=== PATIENT | male | born 1965 | race Caucasian/White ===

== ENCOUNTER → 2023-03-12 | Emergency (ER) | payer BC ==
[~2023-03-12] MED LIST: DIPHENHYDRAMINE 25 MG TAB/CAP ONE
--- NOTE | 2023-03-12 18:56 | ER ---
Nurse's Notes [facility] Name: King Simmons Age: 57 yrs Sex: Male : 1965 Arrival Date: 03/12/2023 Time: 16:49 Bed IW1 Private MD: Diagnosis: Acute pharyngitis, unspecified;Rash and other nonspecific skin eruption Presentation: 03/12 17:03 Chief complaint: Had the flu 10 days ago, was starting to feel better then woke with hb severe sore throat 2 days ago, rash on trunk today. Coronavirus screen: Client presents with at least one sign or symptom that may indicate coronavirus-19. Provider contacted for isolation considerations. Ebola Screen: No symptoms or risks identified at this time. Initial Sepsis Screen: Does the patient meet any 2 criteria? No. Patient's initial sepsis screen is negative. Does the patient have a suspected source of infection? No. Patient's initial sepsis screen is negative. Risk Assessment: Do you want to hurt yourself or someone else? Patient reports no desire to harm self or others. Onset of symptoms was March 02, 2023. 17:03 Method Of Arrival: Ambulatory 17:03 Acuity: WAYNE 4 hb Triage Assessment: 19:11 General: Appears in no apparent distress. comfortable, Behavior is calm, cooperative. cm10 Pain: Denies pain. EENT: No deficits noted. Reports pain in Throat. Neuro: No deficits noted. Level of Consciousness is awake, alert, obeys commands, Oriented to person, place, time, situation. Respiratory: No deficits noted. Airway is patent Respiratory effort is even, unlabored, Respiratory pattern is regular, symmetrical. Historical: - Allergies: 17:05 No Known Allergies; hb - Home Meds: 17:07 lisinopril Oral [Active]; amlodipine oral [Active]; hb - PMHx: 17:07 Hypertension; hb - PSHx: 17:07 None; hb - Immunization history:: Adult Immunizations up to date. - Social history:: Smoking status: Patient denies any tobacco usage or history of. Screenin:12 [facility] ED Fall Risk Assessment (Adult) History of falling in the last 3 months, cm10 including since admission No falls in past 3 months (0 pts) Confusion or Disorientation No (0 pts) Intoxicated or Sedated No (0 pts) Impaired Gait No (0 pts) Mobility Assist Device Used No (0 pt) Altered Elimination No (0 pt) Score/Fall Risk Level 0 - 2 = Low Risk Oriented to surroundings, Maintained a safe environment, Hourly rounding (assess needs \T\ fall precautionary measures) done. Abuse screen: Denies threats or abuse. Denies injuries from another. Nutritional screening: No deficits noted. Tuberculosis screening: No symptoms or risk factors identified. Vital Signs: 17:03 BP 155 / 97; Pulse 102; Resp 20; Temp 99(TE); Pulse Ox 99% ; Weight 104.33 kg; Height 6 hb ft. 2 in. ; Pain 6/10; 19:13 Pulse 86; Resp 18; Pulse Ox 98% ; cm10 17:03 Body Mass Index 29.53 (104.33 kg, 187.96 cm) hb 17:03 Pain Scale: Adult hb ED Course: 16:55 Patient arrived in ED. mg5 16:57 Opal Adame PA-C is PHCP. sb4 16:57 Alejandro Phillips MD is Attending Physician. sb4 17:05 Triage completed. hb 17:06 Arm band placed on. hb 17:12 Strep Sent. hb 19:12 Patient has correct armband on for positive identification. Provided Education on: cm10 Follow-up procedures. . 19:13 No provider procedures requiring assistance completed. Patient did not have IV access cm10 during this emergency room visit. Administered Medications: 17:14 Drug: diphenhydrAMINE PO 50 mg PO once Route: PO; hb 19:14 Follow up: Response: No adverse reaction cm10 Medication: 19:12 VIS not applicable for this client. cm10 Outcome: 18:56 Discharge ordered by . sb4 19:13 Discharged to home ambulatory, cm10 19:13 Condition: good 19:13 Discharge instructions given to patient, Instructed on discharge instructions, follow up and referral plans. medication usage, Demonstrated understanding of instructions, follow-up care, medications, Prescriptions given X 1, 19:14 Patient left the ED. cm10 Signatures: Ashley Arias RN Opal Bernardo PA-C PA-C sb4 Maira Gonzalez RN RN cm10 Cindy Zhang mg5 Corrections: (The following items were deleted from the chart) 17:07 17:03 BP 155 / 97; Pulse 102bpm; Resp 20bpm; Pulse Ox 99%; Temp 99F Temporal; hb hb
--- NOTE | 2023-03-12 18:56 | EDPHYS ---
Physician Documentation [facility] Name: King Simmons Age: 57 yrs Sex: Male : 1965 Arrival Date: 03/12/2023 Time: 16:49 Bed IW1 Private MD: ED Physician Alejandro Phillips HPI: 03/12 17:11 This 57 yrs old Male presents to ER via Ambulatory with complaints of Sore Throat, Rash.sb4 17:11 The patient presents with sore throat. Onset: The symptoms/episode began/occurred this sb4 morning. Modifying factors: Patient's oral intake status: good Denies contact with similarly ill indivduals. patient states he was diagnosed with the flu 1.5 weeks ago. he has been taking OTC flu medication for the symptoms. states he was feeling better until this morning he woke up with a sore throat and diffuse rash. he was concerned he was developing an allergic reaction to the medication. denies any itching, shortness of breath, chest pain, diaphoresis. Historical: - Allergies: 17:05 No Known Allergies; hb - Home Meds: 17:07 lisinopril Oral [Active]; amlodipine oral [Active]; hb - PMHx: 17:07 Hypertension; hb - PSHx: 17:07 None; hb - Immunization history:: Adult Immunizations up to date. - Social history:: Smoking status: Patient denies any tobacco usage or history of. ROS: 17:11 Constitutional: Negative for fever, chills, and weight loss, sb4 17:11 ENT: Positive for sore throat, 17:11 Skin: Positive for rash, 17:11 All other systems are negative, Exam: 17:11 Constitutional: This is a well developed, well nourished patient who is awake, alert, sb4 and in no acute distress. Head/Face: Normocephalic, atraumatic. Eyes: Extra-ocular motions intact. Periorbital areas with no swelling, redness, or edema. Cardiovascular: Regular rate and rhythm with a normal S1 and S2. Respiratory: Lungs have equal breath sounds bilaterally, clear to auscultation and percussion. No rales, rhonchi or wheezes noted. No increased work of breathing, no retractions or nasal flaring. Abdomen/GI: Soft, non-tender, no distension. MS/ Extremity: Pulses equal, no cyanosis. Neurovascular intact. Full, normal range of motion. Neuro: Awake and alert, GCS 15, oriented to person, place, time, and situation. Motor strength 5/5 in all extremities. Sensory grossly intact. 17:11 ENT: Posterior pharynx: no acute changes, Airway: normal, no evidence of obstruction, patent, Tonsils: are normal in appearance, Uvula: normal, midline, non-edematous, no erythema, swelling, is not appreciated, 17:11 Skin: rash a mild rash is noted, rash can be described as macular, and is diffusely located, Vital Signs: 17:03 BP 155 / 97; Pulse 102; Resp 20; Temp 99(TE); Pulse Ox 99% ; Weight 104.33 kg; Height 6 hb ft. 2 in. ; Pain 6/10; 19:13 Pulse 86; Resp 18; Pulse Ox 98% ; cm10 17:03 Body Mass Index 29.53 (104.33 kg, 187.96 cm) hb 17:03 Pain Scale: Adult hb MDM: 17:08 Patient medically screened. sb4 17:11 Differential diagnosis: strep throat, viral exanthem, contact dermatitis, pharyngitis. sb4 18:56 Data reviewed: vital signs, nurses notes, lab test result(s), and as a result, I will sb4 discharge patient. Counseling: I had a detailed discussion with the patient and/or guardian regarding the historical points, exam findings, and any diagnostic results supporting the discharge/admit diagnosis, lab results, to return to the emergency department if symptoms worsen or persist or if there are any questions or concerns that arise at home. 03/12 17:08 Order name: Strep; Complete Time: 17:30 sb4 03/12 17:08 Order name: Throat Culture sb4 03/12 17:31 Order name: Swallow Screen; Complete Time: 19:11 sb4 Administered Medications: 17:14 Drug: diphenhydrAMINE PO 50 mg PO once Route: PO; hb 19:14 Follow up: Response: No adverse reaction cm10 Disposition Summary: 03/12/23 18:56 Discharge Ordered Notes: Location: Home sb4 Problem: new sb4 Symptoms: have improved sb4 Condition: Stable sb4 Diagnosis - Acute pharyngitis, unspecified sb4 - Rash and other nonspecific skin eruption sb4 Followup: sb4 - With: Emergency Department - When: As needed - Reason: Trouble breathing, Worsening of condition Discharge Instructions: - Discharge Summary Sheet sb4 - Pharyngitis, [id number] sb4 Forms: - Medication Reconciliation Form sb4 - Thank You Letter sb4 - Antibiotic Education sb4 - Prescription Opioid Use sb4 - Patient Portal Instructions sb4 - Leadership Thank You Letter sb4 Prescriptions: - Medrol (Shivam) 4 mg Oral Tablets, Dose Pack - take 1 tablet ORAL route as directed - follow package instructions; 1 packet; sb4 Refills: 0, Product Selection Permitted Addendum: 03/14/2023 07:13 I was immediately available for consultation during this patient's visit. I did not e c2 personally see the patient or guide the patient's care. . Signatures: Dispatcher [employer] Ashley Fine RN RN Opal Parish, ANDREW MORALES sb4 Alejandro Phillips MD MD ec2 Maira Gonzalez RN cm10
[2023-03-12 20:51] VITALS: BP 155/97; TEMP 99; O2SAT 98
== END ==
LOC: ER 16:49
DX: J02.9 Acute pharyngitis, unspecified (principal); R21 Rash and other nonspecific skin eruption; I10 Essential (primary) hypertension
CPT/HCPCS: 87070; 87081; 99283

== ENCOUNTER 2023-10-23 10:36 | Emergency (ER) | payer BC ==
[2023-10-23 11:18] LABS: Absolute Basophils 0.1 K/uL (0-0.5); Absolute Eosinophils 0.1 K/uL (0-0.5); Absolute Lymphocytes (CBC) 1.4 K/uL (0.7-4.9); Basophils % 0.5 % (0-1.3); Eosinophils % 0.6 % (0-4.4); Hematocrit 50.2 % (39.6-49.0); Hemoglobin 17.2 g/dL (13.6-17.9); Lymphocytes % 9.4 % (15.3-44.8); MCH 31.8 pg (27.0-35.0); MCHC 34.2 g/dL (32.0-36.0); MPV 8.2 fL (7.6-11.3); Monocytes % 6.6 % (3.3-12.3); Neutrophils % 82.9 % (41.7-73.7); Nucleated Red Blood Cells % 0.1 % (0-0); Platelets 342 thou/uL (152-406); RBC Red Blood Cell Count 5.39 M/uL (4.33-5.43); Red Cell Distribution Width 13.3 % (12.1-15.2)
[2023-10-23 11:28] LABS: Albumin 3.7 g/dL (3.4-5.0); Albumin/Globulin Ratio 0.8 (1.1-1.8); Anion Gap 10.6 mEq/L (5.0-15.0); Bilirubin Total 0.7 mg/dL (0.2-1.0); Globulin 4.6 g/dL (2.3-3.5); Potassium 3.6 mEq/L (3.5-5.1); Protein, Total 8.3 g/dL (6.4-8.2)
[2023-10-23] MEDS ORDERED: ONDANSETRON 4 MG/2 ML VIAL ONE (11:44)
[2023-10-23] MEDS ORDERED: MAGNES/ALUMIN/SIMET 30ML UCUP ONE (11:44)
[2023-10-23] MEDS ORDERED: LIDOCAINE VISCOUS 2% 10ML ORAL SOLN ONE (11:45)
[2023-10-23] MEDS ORDERED: MORPHINE 4 MG/ML SYR ONE (11:45)
[2023-10-23] MEDS ORDERED: FAMOTIDINE 20 MG/2 ML VIAL IV ONE (11:45)
[2023-10-23] MEDS ORDERED: NA CHLORIDE 0.9% 1,000 ML ONE (11:45)
--- NOTE | 2023-10-23 12:00 | RAD REPORT ---
EXAM DESCRIPTION: CT - Abdomen Pelvis W Contrast - 10/23/2023 11:46 am CLINICAL HISTORY: ABD PAIN COMPARISON: No comparisons TECHNIQUE: Thin cut axial CT imaging of the abdomen and pelvis was performed following intravenous a dministration of iodinated contrast. Multiplanar reformats were generated and reviewed. All CT scans are performed using dose optimization technique as appropriate and may include automated exposure control or mA/KV adjustment according to patient size. FINDINGS: No suspicious findings in the lung bases. The liver, spleen, adrenal glands, and pancreas show no suspicious findings. Gallbladder and biliary tree are also without suspicious finding. Symmetric renal function is seen with no hydronephrosis or suspicious renal mass. No dilated bowel loops or bowel wall thickening. No free air, free fluid or inflammatory stranding. N o hernia, mass or bulky lymphadenopathy. The urinary bladder is without significant finding. Small sclerotic lesion within the right aspect of L5 vertebral body near the superior endplate, favor ed to relate to degenerative marrow sclerosis. No other suspicious bony findings. IMPRESSION: No acute intra-abdominal process.
--- NOTE | 2023-10-23 13:56 | ER ---
Nurse's Notes [facility] Name: King Simmons Age: 58 yrs Sex: Male : 1965 Arrival Date: 10/23/2023 Time: 10:36 Bed 7 Private MD: Diagnosis: Abdominal pain, unspecified;Acute gastritis without bleeding Presentation: 10/22 10:47 Chief complaint: Patient states: he started vomiting Friday night into Friday morning ap3 and has not been able to tolerate any PO fluids or foods. patient also reports generalized abdominal pain of which he rates a 6/10 on the pain scale. Coronavirus screen: At this time, the client does not indicate any symptoms associated with coronavirus-19. Ebola Screen: No symptoms or risks identified at this time. Initial Sepsis Screen: Does the patient meet any 2 criteria? HR > 90 bpm. Does the patient have a suspected source of infection? No. Patient's initial sepsis screen is negative. Risk Assessment: Do you want to hurt yourself or someone else? Patient reports no desire to harm self or others. Onset of symptoms was October 19, 2023. 10:47 Method Of Arrival: Ambulatory ap3 10:47 Acuity: WAYNE 3 ap3 Triage Assessment: 10:47 General: Appears uncomfortable, Behavior is calm, cooperative, appropriate for age. ap3 Pain: Complains of pain in abdomen Pain began 10/19/23. Neuro: Level of Consciousness is awake, alert, obeys commands, Oriented to person, place, time, situation, Appropriate for age. Cardiovascular: Patient's skin is warm and dry. Respiratory: Airway is patent Respiratory effort is even, unlabored, Respiratory pattern is regular, symmetrical. GI: Reports lower abdominal pain, upper abdominal pain, intolerance of fluids, intolerance of food, nausea, vomiting. Historical: - Allergies: 10:50 No Known Allergies; ap3 - Home Meds: 10:50 amlodipine oral [Active]; ap3 - PMHx: 10:50 Hypertension; ap3 - Immunization history:: Adult Immunizations up to date. - Infectious Disease History:: Denies. - Social history:: Smoking status: Patient denies any tobacco usage or history of. Patient uses alcohol, on a daily basis. - Family history:: not pertinent. - Hospitalizations: : No recent hospitalization is reported. Screenin:50 Abuse screen: Denies threats or abuse. Nutritional screening: No deficits noted. ap3 Tuberculosis screening: No symptoms or risk factors identified. 11:56 [facility] ED Fall Risk Assessment (Adult) History of falling in the last 3 months, ld1 including since admission No falls in past 3 months (0 pts) Confusion or Disorientation No (0 pts) Intoxicated or Sedated No (0 pts) Impaired Gait No (0 pts) Mobility Assist Device Used No (0 pt) Altered Elimination No (0 pt) Score/Fall Risk Level 0 - 2 = Low Risk Oriented to surroundings, Maintained a safe environment, Educated pt \T\ family on fall prevention, incl call for assistance when getting out of bed, Assessed \T\ reinforced patient's understanding of fall precautions, Provided non-skid footwear, Hourly rounding (assess needs \T\ fall precautionary measures) done, Used ambulatory aids as needed (educated on \T\ assisted with), Used gait belt as appropriate. Assessment: 11:56 General: Appears in no apparent distress. comfortable, Behavior is calm, cooperative, ld1 appropriate for age. Pain: Complains of pain in abdomen Pain does not radiate. Pain currently is 8 out of 10 on a pain scale. Quality of pain is described as throbbing, Pain began suddenly, Is continuous. Neuro: Level of Consciousness is awake, alert, obeys commands, Oriented to person, place, time, situation, Appropriate for age. Cardiovascular: Capillary refill < 3 seconds Patient's skin is warm and dry. Respiratory: Airway is patent Respiratory effort is even, unlabored. GI: Abdomen is flat, non-distended, Reports lower abdominal pain, upper abdominal pain, nausea, vomiting. : No signs and/or symptoms were reported regarding the genitourinary system. EENT: No signs and/or symptoms were reported regarding the EENT system. Derm: No signs and/or symptoms reported regarding the dermatologic system. Musculoskeletal: No signs and/or symptoms reported regarding the musculoskeletal system. 13:28 Reassessment: Patient appears in no apparent distress at this time. No changes from ar6 previously documented assessment. Vital Signs: 10:47 BP 136 / 99; Pulse 101; Resp 17; Pulse Ox 100% ; Pain 6/10; ap3 10:52 Weight 104.33 kg; Height 6 ft. 2 in. ; ap3 11:56 BP 137 / 103; Pulse 89; Resp 18; Pulse Ox 100% on R/A; ld1 13:03 BP 129 / 81; Pulse 71; Resp 18; Pulse Ox 97% on R/A; ld1 14:10 BP 124 / 79; Pulse 77; Resp 18; Pulse Ox 99% on R/A; ar6 10:52 Body Mass Index 29.53 (104.33 kg, 187.96 cm) ap3 10:47 Pain Scale: Adult ap3 ED Course: 10:40 Patient arrived in ED. mg5 10:45 Lex Maxwell MD is Attending Physician. rn 10:49 Triage completed. ap3 10:51 Arm band placed on right wrist. ap3 11:02 Inserted saline lock: 20 gauge in right antecubital area, using aseptic technique. ap3 Blood collected. 11:48 CT Abd/Pelvis - IV Contrast Only In Process Unspecified. EDMS 11:55 Annalise Wang, DEDE is Primary Nurse. ld1 11:56 Patient has correct armband on for positive identification. Placed in gown. Bed in low ld1 position. Call light in reach. Side rails up X2. Pulse ox on. NIBP on. Door closed. Noise minimized. Warm blanket given. 11:56 No provider procedures requiring assistance completed. ld1 14:10 IV discontinued, intact, bleeding controlled, No redness/swelling at site. Pressure ar6 dressing applied. 14:11 Provided Education on: medications. ar6 Administered Medications: 14:12 Discontinued: ns 0.9% 1000 ml IV at 1 bolus Per protocol; 1000 mL bolus ar6 11:55 Drug: GI Cocktail without - (Maalox PO 30 ml, Lidocaine Mucous Membrane 2 % 15 ld1 ml) PO once Route: PO; 14:11 Follow up: Response: No adverse reaction ar6 11:56 Drug: NS 0.9% IV 1000 ml IV at 1 bolus Per protocol; 1000 mL bolus Route: IV; Rate: 1 ld1 bolus; Site: right antecubital; 14:11 Follow up: Response: No adverse reaction; IV Intake: 1000ml ar6 11:56 Drug: Famotidine IVP 20 mg IVP once; dilute with 10 mL 0.9% NaCl; give over 2 minutes ld1 Route: IVP; Site: right antecubital; 14:11 Follow up: Response: No adverse reaction ar6 11:56 Drug: Ondansetron IVP 4 mg IVP once; over 2 minutes Route: IVP; Site: right antecubital;ld1 14:11 Follow up: Response: No adverse reaction ar6 11:56 Drug: morphine IVP or IV 4 mg IVP once over 4 mins Route: IVP; Infused Over: 4 mins; ld1 Site: right antecubital; 14:11 Follow up: Response: No adverse reaction ar6 Medication: 10:52 VIS not applicable for this client. ap3 Intake: 14:11 IV: 1000ml; Total: 1000ml. ar6 Outcome: 13:56 Discharge ordered by . rn 14:10 Discharged to home ambulatory, ar6 14:10 Condition: good 14:10 Discharge instructions given to patient, Instructed on discharge instructions, follow up and referral plans. medication usage, Demonstrated understanding of instructions, follow-up care, medications, Prescriptions given X 3, 14:13 Patient left the ED. ar6 Signatures: Dispatcher [employer] EDMS Lex Maxwell MD MD rn Prokisch, Amanda, RN RN ap3 Annalise Wang RN RN ian1 Cindy Zhang mg5 Melodie Garcia RN RN ar6
--- NOTE | 2023-10-23 13:56 | EDPHYS ---
Physician Documentation [facility] Name: King Simmons Age: 58 yrs Sex: Male : 1965 Arrival Date: 10/23/2023 Time: 10:36 Bed 7 Private MD: ED Physician Lex Maxwell HPI: 10/22 12:34 This 58 yrs old Male presents to ER via Ambulatory with complaints of Vomiting. rn 12:34 The patient presents to the emergency department with nausea, vomiting, diarrhea, rn abdominal pain. Onset: The symptoms/episode began/occurred 4 day(s) ago. Possible causes: unknown. Associated signs and symptoms: Pertinent positives: abdominal pain, diarrhea, nausea, vomiting, Pertinent negatives: fever, GI bleeding. Severity of symptoms: At their worst the symptoms were moderate in the emergency department the symptoms are unchanged. The patient has not experienced similar symptoms in the past. Patient reports drinking heavily over the weekend, Friday started with epigastric abdominal pain associated with nausea/vomiting/diarrhea. Patient has had acid problems in the past, does not take antacid daily, tried him for a few days but did not do anything so stopped him. is in the hospital now for similar symptoms but hers radiated into the chest so is getting cardiac workup. He feels like they have the same problem. No blood in stool or emesis.. Historical: - Allergies: 10:50 No Known Allergies; ap3 - Home Meds: 10:50 amlodipine oral [Active]; ap3 - PMHx: 10:50 Hypertension; ap3 - Immunization history:: Adult Immunizations up to date. - Infectious Disease History:: Denies. - Social history:: Smoking status: Patient denies any tobacco usage or history of. Patient uses alcohol, on a daily basis. - Family history:: not pertinent. - Hospitalizations: : No recent hospitalization is reported. ROS: 12:34 Constitutional: Negative for fever, chills, and weight loss, Cardiovascular: Negative rn for chest pain, palpitations, and edema, Respiratory: Negative for shortness of breath, cough, wheezing, and pleuritic chest pain, Abdomen/GI: Positive for abdominal pain with nausea/vomiting/diarrhea MS/Extremity: Negative for injury and deformity, Skin: Negative for injury, rash, and discoloration, Neuro: Negative for headache, weakness, numbness, tingling, and seizure, Exam: 12:34 Constitutional: This is a well developed, well nourished patient who is awake, alert, rn and in no acute distress. Cardiovascular: Regular rate and rhythm. No pulse deficits. Respiratory: No increased work of breathing, no retractions or nasal flaring. Abdomen/GI: Soft, mild epigastric tenderness. No rebound or guarding. Negative Causey Vital Signs: 10:47 BP 136 / 99; Pulse 101; Resp 17; Pulse Ox 100% ; Pain 6/10; ap3 10:52 Weight 104.33 kg; Height 6 ft. 2 in. ; ap3 11:56 BP 137 / 103; Pulse 89; Resp 18; Pulse Ox 100% on R/A; ld1 13:03 BP 129 / 81; Pulse 71; Resp 18; Pulse Ox 97% on R/A; ld1 14:10 BP 124 / 79; Pulse 77; Resp 18; Pulse Ox 99% on R/A; ar6 10:52 Body Mass Index 29.53 (104.33 kg, 187.96 cm) ap3 10:47 Pain Scale: Adult ap3 MDM: 10:45 Patient medically screened. rn 13:55 Differential diagnosis: Nonspecific abd pain, gastritis, cholecystitis, pancreatitis, rn appendicitis, diverticulitis, viral gastroenteritis, gastroenteritis. Data reviewed: vital signs, nurses notes, lab test result(s), radiologic studies, CT scan, and as a result, I will discharge patient. Counseling: I had a detailed discussion with the patient and/or guardian regarding the historical points, exam findings, and any diagnostic results supporting the discharge/admit diagnosis, lab results, radiology results, the need for outpatient follow up, to return to the emergency department if symptoms worsen or persist or if there are any questions or concerns that arise at home. Response to treatment: the patient's symptoms have markedly improved after treatment. Special discussion: Based on the patient's Hx, exam, and Dx evaluation, there is no indication for emergent surgery or inpatient Tx. It is understood by the patient/guardian that if the Sx's persist or worsen they need to return immediately for re-evaluation. I discussed with the patient/guardian in detail that at this point there is no indication for admission to the hospital. It is understood, however, that if the symptoms persist or worsen the patient needs to return immediately for re-evaluation. 10/22 11:00 Order name: CBC with Diff; Complete Time: 11:41 rn 10/22 11:00 Order name: CMP; Complete Time: 11: rn 10/22 11:00 Order name: Lipase; Complete Time: 11: rn 10/22 11:00 Order name: CT Abd/Pelvis - IV Contrast Only; Complete Time: 12:06 rn 10/22 11:00 Order name: IV Saline Lock; Complete Time: 11:02 rn 10/22 11:00 Order name: Labs collected and sent; Complete Time: 11:02 rn Administered Medications: 14:12 Discontinued: ns 0.9% 1000 ml IV at 1 bolus Per protocol; 1000 mL bolus ar6 11:55 Drug: GI Cocktail without - (Maalox PO 30 ml, Lidocaine Mucous Membrane 2 % 15 ld1 ml) PO once Route: PO; 14:11 Follow up: Response: No adverse reaction ar6 11:56 Drug: NS 0.9% IV 1000 ml IV at 1 bolus Per protocol; 1000 mL bolus Route: IV; Rate: 1 ld1 bolus; Site: right antecubital; 14:11 Follow up: Response: No adverse reaction; IV Intake: 1000ml ar6 11:56 Drug: Famotidine IVP 20 mg IVP once; dilute with 10 mL 0.9% NaCl; give over 2 minutes ld1 Route: IVP; Site: right antecubital; 14:11 Follow up: Response: No adverse reaction ar6 11:56 Drug: Ondansetron IVP 4 mg IVP once; over 2 minutes Route: IVP; Site: right antecubital;ld1 14:11 Follow up: Response: No adverse reaction ar6 11:56 Drug: morphine IVP or IV 4 mg IVP once over 4 mins Route: IVP; Infused Over: 4 mins; ld1 Site: right antecubital; 14:11 Follow up: Response: No adverse reaction ar6 Disposition Summary: 10/23/23 13:56 Discharge Ordered Notes: Location: Home rn Problem: new rn Symptoms: have improved rn Condition: Stable rn Diagnosis - Abdominal pain, unspecified rn - Acute gastritis without bleeding rn Followup: rn - With: Private Physician - When: As needed - Reason: Recheck today's complaints, Re-evaluation by your physician Discharge Instructions: - Discharge Summary Sheet rn - Abdominal Pain, Adult rn - Gastritis, Adult rn Forms: - Medication Reconciliation Form rn - Antibiotic rn surgical - Prescription Opioid Use rn - Patient Portal Instructions rn - Leadership Thank You Letter rn Prescriptions: - ondansetron 4 mg Oral Tablet,disintegrating - take 1 tablet ORAL route every 8 hours As needed; 15 tablet; Refills: 0, rn Product Selection Permitted - Protonix 40 mg Oral Tablet - take 1 tablet ORAL route once daily; 30 tablet; Refills: 0, Product Selection rn Permitted - Tramadol 50 mg Oral Tablet - take 1 tablet ORAL route every 8 hours as needed; 12 tablet; Refills: 0, rn Product Selection Permitted Signatures: Dispatcher [employer] Lex Lozoya MD MD rn Prokisch, Amanda, RN RN ap3 Annalise Wang RN RN ld1 Melodie Garcia RN ar6
[2023-10-23 14:38] VITALS: BP 124/79; O2SAT 99
== END 2023-10-23 14:13 | disposition home or self-care (01) ==
LOC: ER 10:36
DX: K29.00 Acute gastritis without bleeding (principal); I10 Essential (primary) hypertension
CPT/HCPCS: 85025; 36415; 83690; 80053; 74177; 96375; 96374; 99284; Q9967; J2405; J7030

== ENCOUNTER 2024-08-07 13:21 | Emergency (ER) | payer BC, OTHER ==
[2024-08-07] MEDS ORDERED: NA CHLORIDE 0.9% 1,000 ML ONE (14:19)
--- NOTE | 2024-08-07 14:52 | RAD REPORT ---
EXAM: Chest Pa And Lat (2 Views) HISTORY: 59 years Male CHEST PAIN COMPARISON: None. FINDINGS: LUNGS/PLEURA: The lungs are clear. No pleural effusions or pneumothorax. No pulmonary edema. CARDIAC/MEDIASTINUM: The cardiac silhouette is within normal limits. UPPER ABDOMEN: No significant abnormality. BONES: No acute abnormality. LINES/TUBES/OTHER: N/A IMPRESSION: No evidence of acute cardiopulmonary disease.
[2024-08-07 14:55] LABS: Urine Bilirubin NEGATIVE (Negative); Urine Blood Negative (Negative); Urine Clarity Clear (Clear); Urine Color Light-Yellow (Yellow); Urine Glucose NEGATIVE (Negative); Urine Ketones NEGATIVE (Negative); Urine Microscopic Reflex YN NO UMIC; Urine Nitrite NEGATIVE (Negative); Urine Protein NEGATIVE (Negative); Urine Urobilinogen Normal (Normal)
[2024-08-07 15:06] LABS: Absolute Basophils 0.1 K/uL (0-0.5); Absolute Eosinophils 0.2 K/uL (0-0.5); Absolute Lymphocytes (CBC) 1.6 K/uL (0.7-4.9); Absolute Monocytes 0.7 K/uL (0.1-1.3); Absolute Neutrophil 7.7 K/uL (1.8-8.0); Basophils % 0.8 % (0-1.3); Eosinophils % 1.8 % (0-4.4); Hematocrit 45.5 % (39.6-49.0); Hemoglobin 15.8 g/dL (13.6-17.9); Lymphocytes % 15.1 % (15.3-44.8); MCH 31.9 pg (27.0-35.0); MCHC 34.8 g/dL (32.0-36.0); MCV 91.7 fL (80-100); MPV 8.5 fL (7.6-11.3); Monocytes % 7.2 % (3.3-12.3); Neutrophils % 75.1 % (41.7-73.7); Nucleated Red Blood Cells % 0.2 % (0-0); Platelets 289 thou/uL (152-406); RBC Red Blood Cell Count 4.96 M/uL (4.33-5.43); Red Cell Distribution Width 13.1 % (12.1-15.2)
[2024-08-07 15:16] LABS: Anion Gap 10.5 mEq/L (5.0-15.0); BUN Blood Urea Nitrogen 21 mg/dL (7-18); Bicarbonate 30 mEq/L (21-32); Glomerular Filtration Rate 91 ml/min (=/>90); Glucose Level 108 mg/dL (74-106); Magnesium 2.3 mg/dL (1.6-2.4); NT PRO-BNP 25 pg/mL (<125); Potassium 3.5 mEq/L (3.5-5.1); Sodium Level 137 mEq/L (136-145)
[2024-08-07 15:28] LABS: Troponin High Sensitivity < 3.0 pg/mL (<58.9)
--- NOTE | 2024-08-07 15:37 | ER ---
Nurse's Notes [facility] Name: King Simmons Age: 59 yrs Sex: Male : 1965 Arrival Date: 08/07/2024 Time: 13:21 Bed 19 Private MD: Diagnosis: Other fatigue Presentation: 08/07 13:57 Chief complaint: Patient states: he has had fatigue and brain fog since yesterday. me1 States he "just doesn't feel right". c/o intermittent cp that is relieved with belching. No c/p at this time. Reports he was out in the heat yesterday. Coronavirus screen: Vaccine status: Patient reports receiving the 2nd dose of the covid vaccine. Ebola Screen: No symptoms or risks identified at this time. Initial Sepsis Screen: Does the patient meet any 2 criteria? No. Patient's initial sepsis screen is negative. Does the patient have a suspected source of infection? No. Patient's initial sepsis screen is negative. Risk Assessment: Do you want to hurt yourself or someone else? Patient reports no desire to harm self or others. Onset of symptoms was August 06, 2024. 13:57 [place] [facility] [place] Acuity: WAYNE 3 me1 Historical: - Allergies: 14:00 No Known Allergies; me1 - PMHx: 14:00 Hypertension; Gastroesophageal reflux disease; me1 - PSHx: 14:00 None; me1 - Immunization history:: Adult Immunizations up to date. - Infectious Disease History:: Denies. - Social history:: Smoking status: Patient denies any tobacco usage or history of. Screenin:31 [facility] ED Fall Risk Assessment (Adult) History of falling in the last 3 months, mb9 including since admission No falls in past 3 months (0 pts) Confusion or Disorientation No (0 pts) Intoxicated or Sedated No (0 pts) Impaired Gait No (0 pts) Mobility Assist Device Used No (0 pt) Altered Elimination No (0 pt) Score/Fall Risk Level 0 - 2 = Low Risk Oriented to surroundings, Maintained a safe environment, Educated pt \\T\\ family on fall prevention, incl call for assistance when getting out of bed. Abuse screen: Denies threats or abuse. Nutritional screening: No deficits noted. Tuberculosis screening: No symptoms or risk factors identified. Assessment: 14:30 General: Appears in no apparent distress. Behavior is calm, cooperative. Pain: Denies mb9 pain. Neuro: Paul Agitation-Sedation Scale (RASS): 0 - Alert and Calm Level of Consciousness is awake, alert, obeys commands, Oriented to person, place, time, situation, Appropriate for age Reports fatigue . Cardiovascular: Patient's skin is warm and dry. Respiratory: Airway is patent Respiratory effort is even, unlabored, Respiratory pattern is regular, symmetrical. GI: Abdomen is round non-distended, Bowel sounds present X 4 quads. Abd is soft and non tender X 4 quads. : No signs and/or symptoms were reported regarding the genitourinary system. EENT: No signs and/or symptoms were reported regarding the EENT system. Derm: Skin is pink, warm \\T\\ dry. Musculoskeletal: Range of motion: intact in all extremities. Vital Signs: 13:57 BP 132 / 94; Pulse 90; Resp 17; Temp 98.3; Pulse Ox 99% ; Weight 106.59 kg; Height 6 me1 ft. 2 in. ; Pain 0/10; 15:19 BP 128 / 86; Pulse 88; Resp 18; Pulse Ox 100% on R/A; mb9 13:57 Body Mass Index 30.17 (106.59 kg, 187.96 cm) me1 13:57 Pain Scale: Adult me1 ED Course: 13:25 Patient arrived in ED. im 13:33 [facility] 13:33 Ji Colon MD is Attending Physician. dr5 14:00 Triage completed. me1 14:00 Arm band placed on Patient placed in waiting room. me1 14:14 Tamika Colon, DEDE is Primary Nurse. mb9 14:30 Initial lab(s) drawn, by ky, sent to lab. Urine collected: clean catch specimen, clear, mb9 EKG done, by ED staff, reviewed by Maxi ESTEVEZ. Inserted saline lock: 20 gauge in left antecubital area, using aseptic technique. Blood collected. Flushed with 10 mL NS. 14:31 Placed in gown. Bed in low position. Call light in reach. Side rails up X 1. Provided mb9 Education on: press call light if needing anything. Client placed on continuous cardiac and pulse oximetry monitoring. NIBP monitoring applied. grain processor on. 14:31 No provider procedures requiring assistance completed. mb9 14:46 Chest Pa And Lat (2 Views) XRAY In Process Unspecified. EDMS 16:03 IV discontinued, intact, bleeding controlled, No redness/swelling at site. ld1 Administered Medications: 14:32 Drug: NS 0.9% IV 1000 ml IV at 1000 ml once; to be given as a bolus over 60 minutes mb9 Route: IV; Rate: 1000 ml; Site: left antecubital; Medication: 14:31 VIS not applicable for this client. mb9 Outcome: 15:36 Discharge ordered by . dr5 16:03 Discharged to home ambulatory, ld1 16:03 Condition: stable 16:03 Discharge instructions given to patient, Instructed on discharge instructions, follow up and referral plans. Demonstrated understanding of instructions, follow-up care, 16:04 Patient left the ED. ld1 Signatures: Dispatcher [employer] EDTX Annalise Wang RN RN ld1 Tamika Colon RN RN mb9 Anita Dumont Michelle, RN RN me1 Maxi Lopez, FOUR SLIDE MACHINE SETTER-C FOUR SLIDE MACHINE SETTER-Cdr5
--- NOTE | 2024-08-07 15:37 | EDPHYS ---
Physician Documentation [facility] Name: King Simmons Age: 59 yrs Sex: Male : 1965 Arrival Date: 08/07/2024 Time: 13:21 Bed 19 Private MD: ED Physician Ji Colon HPI: 08/07 15:36 This 59 yrs old Male presents to ER via Ambulatory with complaints of dr5 Fatigue, Doesn't Feel Right. 15:36 Patient is a 59-year-old male with hypertension and GERD coming in with not feeling dr5 himself, fatigue, intermittent chest pain, belching that started yesterday. Patient reports that he worked outside yesterday and hasn't been feeling well since. Upon arrival to ER bed, patient denies any symptoms at this time.. Historical: - Allergies: 14:00 No Known Allergies; me1 - PMHx: 14:00 Hypertension; Gastroesophageal reflux disease; me1 - PSHx: 14:00 None; me1 - Immunization history:: Adult Immunizations up to date. - Infectious Disease History:: Denies. - Social history:: Smoking status: Patient denies any tobacco usage or history of. ROS: 15:36 Constitutional: as per hpi dr5 Exam: 15:36 Constitutional: This is a well developed, well nourished patient who is awake, alert, dr5 and in no acute distress. Head/Face: Normocephalic, atraumatic. ENT: Nares patent. No nasal discharge, no septal abnormalities noted. Tympanic membranes are normal and external auditory canals are clear. Oropharynx with no redness, swelling, or masses, exudates, or evidence of obstruction, uvula midline. Mucous membranes moist. Neck: Trachea midline, no thyromegaly or masses palpated, and no cervical lymphadenopathy. Supple, full range of motion without nuchal rigidity, or vertebral point tenderness. No Meningismus. Chest/axilla: Normal chest wall appearance and motion. Nontender with no deformity. No lesions are appreciated. Cardiovascular: Regular rate and rhythm with a normal S1 and S2. Normal PMI, no JVD. No pulse deficits. Respiratory: Lungs have equal breath sounds bilaterally, clear to auscultation. No rales, rhonchi or wheezes noted. No increased work of breathing, no retractions or nasal flaring. Back: No spinal tenderness. No costovertebral tenderness. Full range of motion. Skin: Warm, dry with normal turgor. Normal color with no rashes, no lesions, and no evidence of cellulitis. MS/ Extremity: Pulses equal, no cyanosis. Neurovascular intact. Full, normal range of motion. Neuro: Awake and alert, GCS 15, oriented to person, place, time, and situation. Cranial nerves II-XII grossly intact. Motor strength 5/5 in all extremities. Sensory grossly intact. Cerebellar exam normal. Normal gait. Vital Signs: 13:57 BP 132 / 94; Pulse 90; Resp 17; Temp 98.3; Pulse Ox 99% ; Weight 106.59 kg; Height 6 me1 ft. 2 in. ; Pain 0/10; 15:19 BP 128 / 86; Pulse 88; Resp 18; Pulse Ox 100% on R/A; mb9 13:57 Body Mass Index 30.17 (106.59 kg, 187.96 cm) me1 13:57 Pain Scale: Adult me1 MDM: 13:33 Medical Screening Exam initiated dr5 15:36 Differential diagnosis: viral Infection, bacterial infection, URI. Data reviewed: vital dr5 signs, nurses notes, lab test result(s), radiologic studies, plain films. I considered the following discharge prescriptions or medication management in the emergency department Medications were administered in the Emergency Department. See MAR. Care significantly affected by the following chronic conditions: Hypertension, GERD. Care significantly affected by the following Social Determinants of Health: Poor access to healthcare and/or lack of insurance, Poor access to transportation, Problems related to employment. Counseling: I had a detailed discussion with the patient and/or guardian regarding the historical points, exam findings, and any diagnostic results supporting the discharge/admit diagnosis, the presence of at least one elevated blood pressure reading (>120/80) during this emergency department visit, lab results, radiology results, the need for outpatient follow up, for definitive care, a family practitioner, to return to the emergency department if symptoms worsen or persist or if there are any questions or concerns that arise at home. Medication response: NS. Response to treatment: the patient's symptoms have resolved after treatment, the patient's condition has returned to base line. ED course: Patient states that he gets anxiety sometimes about his health and wanted to come in to make sure that he was okay. Patient denies any symptoms during entire ER stay. Patient reports that he burped prior to arrival that relieved all symptoms. Lab work was unremarkable. Chest x-ray was unremarkable. Printed and given patient all results to take to primary care doctor. Patient reports that he is feeling great and ready to be discharged. All questions answered. Strict ER precautions given. 08/07 14:06 Order name: Basic Metabolic Panel; Complete Time: 15:30 [facility] 08/07 14:06 Order name: CBC with Diff; Complete Time: 15:18 [facility] 08/07 14:06 Order name: Magnesium; Complete Time: 15:30 08/07 14:06 Order name: NT PRO-BNP; Complete Time: 15:30 [facility] 08/07 14:06 Order name: Troponin HS; Complete Time: 15:30 08/07 14:06 Order name: UA Rfx Oliverio Cult if indicated; Complete Time: 14:56 [facility] 08/07 14:06 Order name: Chest Pa And Lat (2 Views) XRAY; Complete Time: 14:53 [facility] 08/07 14:06 Order name: Cardiac monitoring; Complete Time: 14:32 08/07 14:06 Order name: EKG - Nurse/Tech; Complete Time: 14:32 08/07 14:06 Order name: IV Saline Lock; Complete Time: 14:32 08/07 14:06 Order name: Labs collected and sent; Complete Time: 14:32 [facility] 08/07 14:06 Order name: O2 Per Protocol; Complete Time: 14:32 08/07 14:06 Order name: O2 Sat Monitoring; Complete Time: 14:32 dr5 EC:20 Rate is 76 beats/min. Rhythm is regular. QRS [place] is Normal. CT interval is normal at dr5 158 msec. QRS interval is normal at 84 msec. QT interval is normal at 390 msec. Administered Medications: 14:32 Drug: NS 0.9% IV 1000 ml IV at 1000 ml once; to be given as a bolus over 60 minutes mb9 Route: IV; Rate: 1000 ml; Site: left antecubital; Disposition Summary: 08/07/24 15:36 Discharge Ordered Notes: Location: Home dr5 Condition: Stable dr5 Diagnosis - Other fatigue dr5 Followup: dr5 - With: Emergency Department - When: As needed - Reason: Worsening of condition Followup: dr5 - With: Private Physician - When: 1 - 2 days - Reason: Recheck today's complaints, Continuance of care, Re-evaluation by your physician Discharge Instructions: - Discharge Summary Sheet dr5 - Fatigue dr5 Forms: - Medication Reconciliation Form dr5 - Patient Portal Instructions dr5 - Leadership Thank You Letter dr5 Addendum: 08/09/2024 12:35 Co-signature as Attending Physician, iJ Colon MD I agree with the assessment and c waite plan of care. Signatures: Dispatcher [employer] EDJi Sarabia MD MD cha Wilkerson, Mary Beth, RN RN mb9 Delisa Joseph RN RN me1 Maxi Lopez, POLICE MAGISTRATE-C POLICE MAGISTRATE-Cdr5 Corrections: (The following items were deleted from the chart) 08/07 14:06 14:06 BASIC METABOLIC PANEL+C.LAB.BRZ ordered. EDMS EDMS 14:06 14:06 CBC+H.LAB.BRZ ordered. EDMS EDMS 14:06 14:06 MAGNESIUM+C.LAB.BRZ ordered. EDMS EDMS 14:06 14:06 PROBNP+C.LAB.BRZ ordered. EDMS EDMS 14:06 14:06 Troponin High Sensitivity+C.LAB.BRZ ordered. EDMS EDMS 14:06 14:06 UA Rfx Oliverio Cult if indicated+U.LAB.BRZ ordered. EDMS EDMS 14:06 14:06 Chest Pa And Lat (2 Views)+RAD.RAD.BRZ ordered. EDMS EDMS
[2024-08-07 16:22] VITALS: TEMP 98.3
[2024-08-07 16:23] VITALS: BP 128/86; O2SAT 100
--- NOTE | 2024-08-10 12:27 | EKG ---
Test Date: 2024-08-07 Test Time: 14:20:01 Air Breaker Operator: MB MEASUREMENT RESULTS: Intervals: Rate: 76 CA: 158 QRSD: 84 QT: 390 QTc: 438 Jennings: P: 53 CA: 158 QRS: 12 T: 22 INTERPRETIVE STATEMENTS: Normal sinus rhythm Normal ECG No previous ECG available for comparison Electronically Signed On 08-10-24 12:21:21 CDT by Mike Munoz
== END 2024-08-07 16:04 | disposition home or self-care (01) ==
LOC: ER 13:21
DX: R07.9 Chest pain, unspecified (principal); R53.83 Other fatigue; K21.9 Gastro-esophageal reflux disease without esophagitis; I10 Essential (primary) hypertension
CPT/HCPCS: 93005; 85025; 80048; 36415; 83735; 81003; 84484; 83880; 71046; 99285; J7030